=== PATIENT | female | born 1960 | race Caucasian/White ===

== ENCOUNTER 2018-07-09 16:35 | Inpatient (IN) | payer MEDICAID ==
[2018-07-09 17:19] LABS: ADD MAN DIFF? NO
[2018-07-09 17:25] LABS: WHITE BLOOD COUNT 7.8 10^3/ul (4.8-10.8)
[2018-07-09 17:25] LABS: BASOPHIL # 0.1 10^3/ul (0.0-0.1); BASOPHILS % 0.6 % (0.0-2.0); EOSINOPHILS # 0.9 10^3/ul (0.0-0.5); EOSINOPHILS % 11.7 % (0.0-7.0); HEMATOCRIT 37.3 % (37.0-47.0); HEMOGLOBIN 12.4 g/dl (12.0-16.0); LYMPHOCYTES # 2.3 10^3/ul (0.8-2.9); LYMPHOCYTES % 29.2 % (15.0-51.0); MEAN CORPUSCULAR HEMOGLOBIN 29.9 pg (29.0-33.0); MEAN CORPUSCULAR HGB CONC 33.2 g/dl (32.0-37.0); MEAN CORPUSCULAR VOLUME 89.9 fl (82.0-101.0); MEAN PLATELET VOLUME 9.7 fl (7.4-10.4); MONOCYTE # 0.7 10^3/ul (0.3-0.9); MONOCYTES % 8.8 % (0.0-11.0); NEUTROPHIL # 3.9 10^3/ul (1.6-7.5); NEUTROPHILS % 49.4 % (39.0-77.0); PLATELET COUNT 245 10^3/UL (140-415); RED BLOOD COUNT 4.15 10^6/ul (4.20-5.40); RED CELL DISTRIBUTION WIDTH 13.1 % (11.5-14.5)
[2018-07-09] MEDS: IPRATROPIUM (NEB) 0.5 MG/2.5 ML AMP INH (17:37)
[2018-07-09] MEDS: ALBUTEROL 0.083% (NEB) 2.5 MG/3 ML AMP HHN (17:37)
[2018-07-09 17:46] LABS: D-DIMER 500.45 ng/ml (<460)
[2018-07-09 17:49] LABS: ANION GAP 10 (5-13); BLOOD UREA NITROGEN 10 mg/dl (7-20); CALCIUM 9.7 mg/dl (8.4-10.2); CARBON DIOXIDE 24 mmol/L (21-31); CHLORIDE 108 mmol/L (97-110); CREATININE 0.87 mg/dl (0.44-1.00); Estimated GFR > 60 mL/min (>60); GLUCOSE 119 mg/dl (70-220); POTASSIUM 3.8 mmol/L (3.5-5.1); SODIUM 142 mmol/L (135-144)
[2018-07-09] MEDS: METHYLPREDNISOLONE 125 MG INJ IV (17:49)
[2018-07-09 18:00] LABS: TROPONIN-I < 0.012 ng/ml (0.000-0.120)
[2018-07-09] MEDS ORDERED: ACETAMINOPHEN 325 MG TAB PO ×2 (19:00→21:30)
[2018-07-09] MEDS ORDERED: ONDANSETRON 4 MG INJ IV ×2 (19:00→21:30)
[2018-07-09] MEDS ORDERED: SOD CHLORIDE 0.9% 100 ML (19:01)
[2018-07-09] MEDS ORDERED: IOHEXOL 100 ML (19:01)
[2018-07-09] MEDS ORDERED: ALBUTEROL HFA 8 GM INHALER INH (21:30)
[2018-07-09] MEDS ORDERED: NACL 0.9% 3 ML SYG IV (21:30)
[2018-07-09 22:49] LABS: LACTIC ACID 4.6 mmol/L (0.5-2.0)
[2018-07-09] MEDS: ALBUTEROL/IPRATROPIUM (NEB) 3 ML AMP HHN (23:52)
[2018-07-10] MEDS: GUAIFENESIN 20 MG/ML 5ML CUP PO (00:31)
[2018-07-10 01:41] LABS: LACTIC ACID 4.9 mmol/L (0.5-2.0)
[2018-07-10] MEDS: SOD CHLORIDE 0.9% 500 ML IV (02:12)
[2018-07-10 02:53] LABS: ADD UMIC YES; UR ASCORBIC ACID 40 mg/dL (NEGATIVE); UR BACTERIA FEW /HPF (NONE SEEN); UR BILIRUBIN (Dip) NEGATIVE (NEGATIVE); UR BLOOD (Dip) 1+ mg/dL (NEGATIVE); UR CLARITY CLEAR (CLEAR); UR COLOR YELLOW (YELLOW); UR GLUCOSE (Dip) 3+ mg/dL (NEGATIVE); UR KETONES (Dip) TRACE mg/dL (NEGATIVE); UR LEUKOCYTE ESTERASE (Dip) NEGATIVE Leu/ul (NEGATIVE); UR NITRITE (Dip) NEGATIVE (NEGATIVE); UR RBC 1 /HPF (0-5); UR SPECIFIC GRAVITY (Dip) 1.038 (1.003-1.030); UR TOTAL PROTEIN (Dip) NEGATIVE (NEGATIVE); UR UROBILINOGEN (Dip) NEGATIVE (NEGATIVE); UR WBC 0 /HPF (0-5)
[2018-07-10] MEDS: LEVOFLOXACIN 500MG/D5W (PMX) 100 ML IVPB (03:29)
[2018-07-10] MEDS: LEVALBUTEROL (NEB) 0.63 MG/3 ML AMP HHN ×6 (05:19→20:36)
[2018-07-10 05:41] LABS: ADD MAN DIFF? NO
[2018-07-10 05:59] LABS: BASOPHILS % 0.2 % (0.0-2.0); HEMATOCRIT 37.3 % (37.0-47.0); HEMOGLOBIN 12.6 g/dl (12.0-16.0); LYMPHOCYTES # 0.8 10^3/ul (0.8-2.9); LYMPHOCYTES % 13.6 % (15.0-51.0); MEAN CORPUSCULAR HEMOGLOBIN 30.4 pg (29.0-33.0); MEAN CORPUSCULAR HGB CONC 33.8 g/dl (32.0-37.0); MEAN CORPUSCULAR VOLUME 89.9 fl (82.0-101.0); MEAN PLATELET VOLUME 10.3 fl (7.4-10.4); MONOCYTES % 0.5 % (0.0-11.0); NEUTROPHIL # 5.1 10^3/ul (1.6-7.5); NEUTROPHILS % 85.2 % (39.0-77.0); PLATELET COUNT 233 10^3/UL (140-415); RED BLOOD COUNT 4.15 10^6/ul (4.20-5.40); RED CELL DISTRIBUTION WIDTH 13.4 % (11.5-14.5)
[2018-07-10 06:07] LABS: LACTIC ACID 4.1 mmol/L (0.5-2.0)
[2018-07-10 06:11] LABS: ALANINE AMINOTRANSFERASE 26 IU/L (13-69); ALBUMIN 4.7 g/dl (3.3-4.9); ALBUMIN/GLOBULIN RATIO 1.38; ALKALINE PHOSPHATASE 61 IU/L (42-121); ANION GAP 13 (5-13); ASPARTATE AMINO TRANSFERASE 32 IU/L (15-46); BILIRUBIN,INDIRECT 0.1 mg/dl (0-1.1); BILIRUBIN,TOTAL 0.1 mg/dl (0.2-1.3); BLOOD UREA NITROGEN 11 mg/dl (7-20); CALCIUM 9.9 mg/dl (8.4-10.2); CARBON DIOXIDE 20 mmol/L (21-31); CHLORIDE 106 mmol/L (97-110); CREATININE 0.75 mg/dl (0.44-1.00); Estimated GFR > 60 mL/min (>60); GLUCOSE 169 mg/dl (70-220); PHOSPHORUS 3.5 mg/dl (2.5-4.9); POTASSIUM 4.1 mmol/L (3.5-5.1); SODIUM 139 mmol/L (135-144); TOTAL PROTEIN 8.1 g/dl (6.1-8.1)
[2018-07-10] MEDS ORDERED: IPRATROPIUM (NEB) 0.5 MG/2.5 ML AMP (07:52)
[2018-07-10] MEDS: IPRATROPIUM (NEB) 0.5 MG/2.5 ML AMP HHN ×4 (08:14→20:36)
[2018-07-10] MEDS: METHYLPREDNISOLONE 125 MG INJ IV (08:34)
[2018-07-10] MEDS: HEPARIN 5,000 UNIT/1 ML VIAL SC ×2 (08:35→21:47)
[2018-07-10 12:12] LABS: LACTIC ACID 6.3 mmol/L (0.5-2.0)
[2018-07-10] MEDS: SOD CHLORIDE 0.9% 1,000 ML IV (12:47)
[2018-07-10 13:20] LABS: AADO2 Arterial 49.8 mmHg (7.0-24.0); Allen Test ACCEPTAB; Arterial Base Excess -3.1 mmol/L (-3.0-3); Arterial Blood Gas Oxygen Sat 93.2 mmHG (95.0-98.0); Arterial COHb 0.3 % (0.0-3.0); Arterial Fraction of Oxyhgb 92.6 % (93.0-99.0); Arterial HCO3 20.1 mmol/L (22.0-26.0); Arterial MetHb 0.3 % (0.0-1.5); Arterial pCO2 30.7 mmhg (35-45); MODE ROOM AIR; Site Left Radial
[2018-07-10 14:46] LABS: CHOL/HDL RATIO 2.1 RATIO; HDL CHOLESTEROL 77 mg/dl (37-92); LDL CHOLESTEROL,CALCULATED 69 mg/dl; TRIGLYCERIDES 84 mg/dl (0-149)
[2018-07-10 14:46] LABS: CHOLESTEROL 163 mg/dl (100-200)
[2018-07-10 16:46] LABS: LACTIC ACID 4.6 mmol/L (0.5-2.0)
[2018-07-10] MEDS ORDERED: ATORVASTATIN 10 MG TAB PO (21:00)
[2018-07-10] MEDS: AL HYDROX/MG HYDROX/SIMETH 30 ML CUP PO (22:37)
[2018-07-10] MEDS: PANTOPRAZOLE (EC) 40 MG TAB PO (22:37)
[2018-07-11] MEDS: SOD CHLORIDE 0.9% 1,000 ML IV (00:32)
[2018-07-11] MEDS: LEVALBUTEROL (NEB) 0.63 MG/3 ML AMP HHN ×6 (01:42→21:04)
[2018-07-11] MEDS: LEVOFLOXACIN 500MG/D5W (PMX) 100 ML IVPB (02:37)
[2018-07-11] MEDS: AL HYDROX/MG HYDROX/SIMETH 30 ML CUP PO ×2 (03:54→20:43)
[2018-07-11] MEDS: GUAIFENESIN 20 MG/ML 5ML CUP PO ×2 (03:54→20:43)
[2018-07-11 05:44] LABS: ADD MAN DIFF? NO
[2018-07-11 05:46] LABS: BASOPHILS % 0.1 % (0.0-2.0); HEMATOCRIT 33.9 % (37.0-47.0); HEMOGLOBIN 11.1 g/dl (12.0-16.0); LYMPHOCYTES # 1.5 10^3/ul (0.8-2.9); LYMPHOCYTES % 9.2 % (15.0-51.0); MEAN CORPUSCULAR HEMOGLOBIN 29.8 pg (29.0-33.0); MEAN CORPUSCULAR HGB CONC 32.7 g/dl (32.0-37.0); MEAN CORPUSCULAR VOLUME 91.1 fl (82.0-101.0); MONOCYTE # 1.3 10^3/ul (0.3-0.9); MONOCYTES % 7.9 % (0.0-11.0); NEUTROPHIL # 13.4 10^3/ul (1.6-7.5); PLATELET COUNT 233 10^3/UL (140-415); RED BLOOD COUNT 3.72 10^6/ul (4.20-5.40); RED CELL DISTRIBUTION WIDTH 13.8 % (11.5-14.5)
[2018-07-11 05:46] LABS: WHITE BLOOD COUNT 16.4 10^3/ul (4.8-10.8)
[2018-07-11 06:06] LABS: MAGNESIUM 2.2 mg/dl (1.7-2.5)
[2018-07-11 06:06] LABS: PHOSPHORUS 2.7 mg/dl (2.5-4.9)
[2018-07-11 06:25] LABS: ANION GAP 10 (5-13); BLOOD UREA NITROGEN 15 mg/dl (7-20); CALCIUM 9.5 mg/dl (8.4-10.2); CARBON DIOXIDE 21 mmol/L (21-31); CHLORIDE 112 mmol/L (97-110); CREATININE 0.71 mg/dl (0.44-1.00); Estimated GFR > 60 mL/min (>60); GLUCOSE 153 mg/dl (70-220); POTASSIUM 4.1 mmol/L (3.5-5.1); SODIUM 143 mmol/L (135-144)
[2018-07-11 06:55] LABS: LACTIC ACID 3.6 mmol/L (0.5-2.0)
[2018-07-11] MEDS: PANTOPRAZOLE (EC) 40 MG TAB PO (07:02)
[2018-07-11] MEDS: IPRATROPIUM (NEB) 0.5 MG/2.5 ML AMP HHN ×4 (07:42→21:04)
[2018-07-11] MEDS: LOSARTAN 25 MG TAB PO (08:58)
[2018-07-11] MEDS: METHYLPREDNISOLONE 125 MG INJ IV (08:59)
[2018-07-11] MEDS: HEPARIN 5,000 UNIT/1 ML VIAL SC ×2 (09:01→20:38)
[2018-07-11 10:43] LABS: LACTIC ACID 4.8 mmol/L (0.5-2.0)
[2018-07-11] MEDS: METHYLPREDNISOLONE 40 MG INJ IV ×2 (12:31→18:08)
[2018-07-11] MEDS: BUDESONIDE (NEB) 0.5MG/2ML AMP HHN ×2 (13:28→21:04)
[2018-07-11] MEDS: AZITHROMYCIN 250 MG TAB PO (13:34)
[2018-07-11 16:12] LABS: LACTIC ACID 4.9 mmol/L (0.5-2.0)
[2018-07-12] MEDS: METHYLPREDNISOLONE 40 MG INJ IV ×4 (00:02→18:08)
[2018-07-12] MEDS: LEVALBUTEROL (NEB) 0.63 MG/3 ML AMP HHN ×5 (00:55→19:42)
[2018-07-12 05:18] LABS: ADD MAN DIFF? NO
[2018-07-12 05:22] LABS: BASOPHILS % 0.1 % (0.0-2.0); HEMATOCRIT 36.9 % (37.0-47.0); HEMOGLOBIN 12.2 g/dl (12.0-16.0); LYMPHOCYTES # 1.2 10^3/ul (0.8-2.9); LYMPHOCYTES % 8.9 % (15.0-51.0); MEAN CORPUSCULAR HGB CONC 33.1 g/dl (32.0-37.0); MEAN CORPUSCULAR VOLUME 90.7 fl (82.0-101.0); MEAN PLATELET VOLUME 10.1 fl (7.4-10.4); MONOCYTE # 0.3 10^3/ul (0.3-0.9); MONOCYTES % 1.9 % (0.0-11.0); NEUTROPHIL # 11.6 10^3/ul (1.6-7.5); NEUTROPHILS % 88.2 % (39.0-77.0); PLATELET COUNT 223 10^3/UL (140-415); RED BLOOD COUNT 4.07 10^6/ul (4.20-5.40); RED CELL DISTRIBUTION WIDTH 13.9 % (11.5-14.5)
[2018-07-12 05:22] LABS: WHITE BLOOD COUNT 13.1 10^3/ul (4.8-10.8)
[2018-07-12] MEDS: PANTOPRAZOLE (EC) 40 MG TAB PO (05:40)
[2018-07-12 05:43] LABS: MAGNESIUM 2.5 mg/dl (1.7-2.5)
[2018-07-12 06:02] LABS: ANION GAP 12 (5-13); BLOOD UREA NITROGEN 18 mg/dl (7-20); CALCIUM 9.9 mg/dl (8.4-10.2); CARBON DIOXIDE 25 mmol/L (21-31); CHLORIDE 106 mmol/L (97-110); CREATININE 0.73 mg/dl (0.44-1.00); Estimated GFR > 60 mL/min (>60); GLUCOSE 170 mg/dl (70-220); POTASSIUM 4.3 mmol/L (3.5-5.1); SODIUM 143 mmol/L (135-144)
[2018-07-12 06:18] LABS: LACTIC ACID 3.7 mmol/L (0.5-2.0)
[2018-07-12] MEDS: SOD CHLORIDE 0.9% 500 ML IV (06:57)
[2018-07-12] MEDS: AZITHROMYCIN 250 MG TAB PO (09:07)
[2018-07-12] MEDS: LOSARTAN 25 MG TAB PO (09:08)
[2018-07-12] MEDS: HEPARIN 5,000 UNIT/1 ML VIAL SC ×2 (09:09→21:47)
[2018-07-12] MEDS: BUDESONIDE (NEB) 0.5MG/2ML AMP HHN ×2 (10:05→19:42)
[2018-07-12] MEDS: IPRATROPIUM (NEB) 0.5 MG/2.5 ML AMP HHN ×4 (10:05→19:42)
[2018-07-13] MEDS: METHYLPREDNISOLONE 40 MG INJ IV ×2 (00:07→06:01)
[2018-07-13] MEDS: LEVALBUTEROL (NEB) 0.63 MG/3 ML AMP HHN ×4 (02:14→20:19)
[2018-07-13] MEDS: PANTOPRAZOLE (EC) 40 MG TAB PO (06:01)
[2018-07-13] MEDS: IPRATROPIUM (NEB) 0.5 MG/2.5 ML AMP HHN ×4 (07:55→20:19)
[2018-07-13] MEDS: BUDESONIDE (NEB) 0.5MG/2ML AMP HHN ×2 (07:55→20:00)
[2018-07-13] MEDS: AZITHROMYCIN 250 MG TAB PO (09:46)
[2018-07-13] MEDS: LOSARTAN 25 MG TAB PO (09:47)
[2018-07-13] MEDS: HEPARIN 5,000 UNIT/1 ML VIAL SC ×2 (09:50→20:42)
[2018-07-13 11:37] LABS: LACTIC ACID 6.2 mmol/L (0.5-2.0)
[2018-07-14] MEDS: LEVALBUTEROL (NEB) 0.63 MG/3 ML AMP HHN ×2 (01:50→10:07)
[2018-07-14] MEDS: PANTOPRAZOLE (EC) 40 MG TAB PO (06:20)
[2018-07-14] MEDS: AZITHROMYCIN 250 MG TAB PO (09:00)
[2018-07-14] MEDS: LOSARTAN 25 MG TAB PO (09:01)
[2018-07-14] MEDS: predniSONE 10 MG TAB PO (09:01)
[2018-07-14] MEDS: HEPARIN 5,000 UNIT/1 ML VIAL SC (09:03)
[2018-07-14] MEDS: BUDESONIDE (NEB) 0.5MG/2ML AMP HHN (10:07)
[2018-07-14] MEDS: IPRATROPIUM (NEB) 0.5 MG/2.5 ML AMP HHN (10:07)
== END 2018-07-14 11:55 | disposition home or self-care (01) | DRG 202 ==
LOC: FTE 16:35 → 2NE 18:41
DX: J45.901 Unspecified asthma with (acute) exacerbation (principal); E87.2 Acidosis; I10 Essential (primary) hypertension; E78.5 Hyperlipidemia, unspecified
CPT/HCPCS: 36415; 36600; 71045; 71275; 80048; 80053; 80061; 81001; 82803; 83605; 83735; 84100; 84484; 85025; 85378; 87040; 87086; 87400; 93005; 94640; 94664; 96374; 99291-25

== ENCOUNTER 2018-07-23 01:09 | Emergency (ER) | payer MEDICAID ==
[2018-07-23] MEDS: DEXAMETHASONE 4 MG TAB PO (02:23)
[2018-07-23] MEDS: DIPHENHYDRAMINE 50 MG CAP PO (02:23)
[2018-07-23] MEDS: FAMOTIDINE 20 MG TAB PO (02:23)
== END 2018-07-23 04:21 | disposition home or self-care (01) ==
LOC: E/R 01:09
DX: R21 Rash and other nonspecific skin eruption (principal); I10 Essential (primary) hypertension
CPT/HCPCS: 99283; Z7502

== ENCOUNTER 2018-10-09 16:08 | Emergency (ER) | payer OTHER, MEDICAID ==
[2018-10-09] MEDS: DEXAMETHASONE 10 MG/ML 1 ML INJ IM (17:38)
[2018-10-09] MEDS: ALBUTEROL 0.5% (NEB) 2.5 MG/0.5 ML AMP INH ×2 (17:50→19:06)
== END 2018-10-09 21:43 | disposition home or self-care (01) ==
LOC: FTE 16:08
DX: J45.901 Unspecified asthma with (acute) exacerbation (principal); I10 Essential (primary) hypertension
CPT/HCPCS: 94640; 94644; 94664; 96372; 99284-25